=== PATIENT | female | born 1950 | race Caucasian/White ===

== ENCOUNTER 2018-02-03 09:29 | Emergency (ER) | payer MEDICARE ==
--- NOTE | 2018-02-03 10:51 | UC ---
Knee Pain HPI - HPI Summary HPI Summary: COUGH: has had cough x2 wks. dry but persistent. denies orthopnea, sob or PND. has tried otc meds w/ no relief. she did get flu shot this yr. R KNEE PAIN: sudden onset of inability to bear weight on R knee and R knee pain. denies R hip or R ankle pain, denies R calf pain. Denies calf redness , sob, or redness at R knee. she cannot recall any fall or injury. does have hx of osteoporosis and arthritis. she is retired and not usually active. denies being bed ridden for a long period of time or recent travel. - History of Current Complaint Chief Complaint: UCLowerExtremity Stated Complaint: LEG INJURY Time Seen by Provider: 02/03/18 10:17 Hx Obtained From: Patient Hx Last Menstrual Period: menapause ?: No Onset/Duration: Sudden Onset Pain Intensity: 7 Pain Scale Used: 0-10 Numeric Character: Sharp, Aching Aggravating Factor(s): Weight Bearing, Prolonged Standing Alleviating Factor(s): Position, Other - elevatoin Able to Bear Weight: No - Allergies/Home Medications Allergies/Adverse Reactions: Allergies Allergy/AdvReac Type Severity Reaction Status Date / Time Penicillins Allergy Rash Verified 02/03/18 09:38 PMH/Surg Hx/FS Hx/Imm Hx - Additional Past Medical History Additional PMH: arthritis Previously Healthy: No - URI Cardiovascular History: Hypertension - Surgical History Surgical History: Yes Surgery Procedure, Year, and Place: left BREAST biopsy, trigger fingers on both hands. CARPAL TUNNEL RIGHT HAND - Family History Known Family History: Positive: Hypertension - Social History Alcohol Use: Weekly Alcohol Amount: 1/week Substance Use Type: None Smoking Status (MU): Never Smoked Tobacco - Immunization History Most Recent Influenza Vaccination: utd Most Recent Tetanus Shot: utd Most Recent Pneumonia Vaccination: utd Review of Systems All Other Systems Reviewed And Are Negative: Yes Constitutional: Positive: Negative Respiratory: Positive: Cough - dry x2 wks. denies sob Cardiovascular: Positive: Negative Neurovascular: Positive: Negative Musculoskeletal: Positive: Arthralgia - R knee.. Negative: Calf Tenderness Neurological: Positive: Negative Physical Exam - Summary Physical Exam Summary: in wheel chair provided at Triage Information Reviewed: Yes Vital Signs: Initial Vital Signs Temp 97.8 F 02/03/18 09:33 Pulse 96 02/03/18 09:33 Resp 16 02/03/18 09:33 BP 154/87 02/03/18 09:33 Pulse Ox 97 02/03/18 09:33 Vital Signs Reviewed: Yes Neck: Positive: No Lymphadenopathy Respiratory: Positive: No respiratory distress, No accessory muscle use, Crackles - R side. Negative: Rhonchi, Stridor, Wheezing Cardiovascular Exam: Normal Musculoskeletal: Positive: Strength Intact - R leg, ROM Intact - at R knee, No Edema - at R knee or LE, Other: - No calf tenderness or redness, no redness at R knee. R knee has tenderness at patellar area. Neurological: Positive: Alert Skin Exam: Normal Knee Pain Course/Dx - Course Course Of Treatment: COUGH: w/ abnormal lung sounds and duration of cough will tx w/ antibiotics. R KNEE PAIN: using cane for sudden R knee pain which is thought to be inflammatory in nature. Not though to be vascular in nature and pain limited to R knee only. not thought to be septic in nature as no redness or fever. imaging did not show fx. strongly encouraged to go to ED should she develop new swelling, sob, new instability. advised to use cane for support. she will be following up w/ her pcp to discuss other course of tx should she need further imaging vs. PT. Elevated BP: no cardiac or resp. symptoms assoc. w / this. she should f/u w/ pcp to further discuss chronic issue. - Differential Dx/Diagnosis Differential Diagnosis/HQI/PQRI: Fracture (Closed), Patellofemoral Syndrome, Sprain, Strain, Other - arthritis Provider Diagnoses: R knee pain; COUGH Discharge - Sign-Out/Discharge Documenting (check all that apply): Patient Departure All imaging exams completed and their final reports reviewed: Yes - Discharge Plan Condition: Fair Disposition: HOME Prescriptions: Azithromycin TAB* [Zithromax TAB (Z-ROX) 250 mg #6 tabs] 2 tab PO .TODAY, THEN 1 DAILY #1 rox Patient Education Materials: Knee Pain (ED), Pneumonia (ED) Referrals: Drew Stone MD [Primary Care Provider] - Additional Instructions: Try to stay off R knee for a few days. follow up with your pcp in 2 days or if worsening. If you develop fever, sudden calf pain/swelling, sob please go to the emergency room. - Billing Disposition and Condition Condition: FAIR Disposition: Home
[2018-02-03 11:32] VITALS: BP 137/69
== END 2018-02-03 11:54 | disposition home or self-care (01) ==
LOC: UCEAST 09:29
DX: R05 Cough (principal); M25.561 Pain in right knee; I10 Essential (primary) hypertension; Z88.0 Allergy status to penicillin
CPT/HCPCS: 99212; G0463